=== PATIENT | female | born 2000 | race Caucasian/White ===

== ENCOUNTER 2022-08-25 12:31 | Inpatient (IN) | payer SELFPAY ==
[~2022-08-25] VITALS: Ht 172.7 cm; Wt 85.9 kg
[2022-08-25] VITALS (13 sets, daily range): BP systolic 100–139; BP diastolic 50–88; PULSE 64–111; TEMP 97.5–98.9
[2022-08-25] MEDS ORDERED: PRENATAL TABLET PO (12:49)
[2022-08-25] MEDS ORDERED: FERROUS SU325 MG/TAB PO (12:49)
--- NOTE | 2022-08-25 13:00 | NUR ---
1235- Pt arrives on unit with complaints of UCs every 3-8 mins. Pt into bathroom to change into gown. 1238- Pt into bed, EFM and TOCO on and tracing well. Rivera, RN at bedside assisting with admission. VSS. Pt states she and her were checking livestock outside of [place] when she started lavelle and came to closest hospital for care. Pt denies complications with , G3L2, 40+4, unsure of GBS results and verbalizes doing a glucose screening and it being normal. 1242- SVE by Rivera, RN , intact. Pt tolerating UCs well. 1253- Dr Moyer at bedside, obtains history. Admission orders received.
[2022-08-25 13:26] LABS: BASO % 0.2 % (0.0-2.0); EOS % 0.1 % (0.0-4.0); GRAN # 10.3 K/mm3 (1.4-6.5); GRAN % 80.4 % (42.2-75.2); LYMPH # 1.8 K/mm3 (1.2-3.4); LYMPH % 13.9 % (20.0-51.0); MEAN CELL VOLUME 65 fl (80.0-100.0); MEAN CORPUSCULAR HGB CONC 29 g/dl (33.0-37.0); MEAN PLATELET VOLUME 10.1 fl (7.4-10.4); MONO # 0.6 K/mm3 (0.1-0.6); MONO % 4.8 % (1.7-9.3); PLATELET COUNT 358 K/mm3 (130-400)
[2022-08-25 13:29] LABS: HEMATOCRIT 25.2 % (37.0-47.0); HEMOGLOBIN 7.3 g/dl (12.5-16.0); MEAN CORPUSCULAR HEMOGLOBIN 19 pg (27-31)
--- NOTE | 2022-08-25 13:38 | NUR ---
1338- [facility] and TOCO off. Pt up to void, provide urine sample. Requests to use BB. Discussed intermittent monitoring, questions answered.
[2022-08-25 13:43] LABS: ALBUMIN 2.8 gm/dL (3.5-5.0); BILIRUBIN,TOTAL 0.3 mg/dL (0.2-1.2); CALCIUM 8.9 mg/dL (8.4-10.2); CREATININE, serum 0.66 mg/dL (0.57-1.11); POTASSIUM 3.9 mmol/L (3.5-4.5); TOTAL PROTEIN 7.1 gm/dL (6.2-8.1)
[2022-08-25 14:00] LABS: HIV 1/2 Antibodies Non-Reactive; HIV-1p24 Antigen Non-Reactive
[2022-08-25 14:06] LABS: COLLECTION METHOD CLEAN CATCH
--- NOTE | 2022-08-25 14:26 | NUR ---
1426- EFM and TOCO on and tracing well. Pt on BB. Tolerating UCs well.
[2022-08-25 14:31] LABS: TRICYCLIC ANTIDEPRESS URINE NEGATIVE
[2022-08-25 14:35] LABS: PH 7.5 (5.0-8.5); URINE APPEARANCE Cloudy (CLEAR/HAZY); URINE COLOR Yellow (YELLOW)
[2022-08-25 14:36] LABS: URINE GLUCOSE Negative (NEGATIVE); URINE KETONE Negative (NEGATIVE); URINE NITRATE Positive (NEGATIVE); URINE PROTEIN(semi-quant) Negative (NEGATIVE); URINE UROBILINOGEN 0.2 E.U/dL (0.2-1.0)
[2022-08-25 14:37] LABS: URINE BLOOD TRACE-INTACT (NEGATIVE)
[2022-08-25 14:39] LABS: MUCOUS Present (NOT PRESENT); SQUAMOUS EPITHELIAL 0-2 /hpf (0-10); URINE BACTERIA Rare /hpf (NONE SEEN); URINE WBC 20-50 /hpf (0-2)
--- NOTE | 2022-08-25 15:14 | NUR ---
1514- [facility] and TOCO off. Pt ambulates in mckoy and room.
--- NOTE | 2022-08-25 16:30 | NUR ---
1603- Pt assisted to LL with RL on stirrup. Pt tolerating UCs well. 1619- Pt complains of of feeling small amount of pressure with UCs. SVE by this RN 8-. Pt repositioned to Skylar position.
--- NOTE | 2022-08-25 17:00 | NUR ---
1641- Pt assisted to knees, leaning over back of bed. Pt tolerating well. 1700- MENDEL Palm to bedside, takes over care of Pt at this time.
--- NOTE | 2022-08-25 17:45 | NUR ---
1650 THIS RN COMES INTO ROOM TO TAKE OVER PT CARE. 170 SVE BY THIS RN 1. PT REQUESTS TO BE CHECKED. PT STATES "FEELING PUSHY". PT UPDATED ON SVE. 1707 DR TRACY CALLED FOR DELIVERY. DR TRACY STATES "I AM WALKING ONTO UNIT 1710 SVE /+1. 1713 PT BEGINS PUSHING WITH CONTRACTIONS. 1717 SPONTANEOUS VAGINAL DELIVERY OF VIABLE MALE . BULB SUCTIONED AND STIMULATED. CORD CLAMPED BY DR TRACY AND CUT BY FOB. INFANT TO MOTHER'S CHEST. Ron GRAY RN TAKES OVER CARE OF INFANT. 1721 SPONTANEOUS DELIVERY OF PLACENTA. PITOCIN BOLUS STARTED PER PROTOCOL. PT STRAIGHT CATHED. 100CC NOTED. 1ST DEGREE PERINEAL LACERATION REPAIRED BY DR TRACY. PERICARE DONE. PT REPOSITIONED. FUNDAL MASSAGE DONE. FIRM MIDLINE. SMALL AMT OF BLEEDING NOTED. THIS RN GIVES PT WARM BLANKET, DISCUSSES PLAN OF CARE WITH PT, CALL LIGHT WITHIN REACH.
--- NOTE | 2022-08-25 18:20 | NUR ---
Report received from Maddy Baker RN. Pt delivered at 1717. Current QBL at 488. Dr. Moyer would like to be called if pt does not feel well, feels light headed, or bleeding. This nurse can have credit of 1500 for LR and Pitocin. Cord stat not done. Maddy Baker RN stated "Placenta was sent off to patho and cord gases were drawn." Sheila Bhakta RN stated "I will ask Dr. Kate about that." This is pt third baby. Initial Hgb at 7.3. Pt was adequately dosed for unknown GBS status. This nurse assumes care for pt.
--- NOTE | 2022-08-25 19:05 | NUR ---
Silvia Ramirez RN called out to this nurse to attend to pt bedside. Pt in bed, IV out stating "I felt something leaking and noticed that it came out." Pt care provided and cleaned up. IV site free of inflammation, redness, or infection. Bandaid applied.
--- NOTE | 2022-08-25 20:05 | NUR ---
Pt OOB, ambulating to utilize bathroom. Pericare performed, pt changed into friendly gown. Pt educated on vaginal bleeding and care. Pt ambulated, accompanied by this nurse pushing baby in crib, with pt spouse and belongings in tow to Room 208 at 2005. Pt oriented to Room 208, educated on whiteboard, and educated on packet. Questions, concerns, and needs encouraged. Pt verbalized understanding and agreement of POC and education with "no" questions, concerns, or needs.
--- NOTE | 2022-08-25 21:46 | NUR ---
This nurse at pt bedside for rounding. Pt passed a 23g clot, size of a golf ball. Pericare provided, ice pack weighed, 7g. Pt bleeding WNL, scant. Pt fundus firm and down 1 fingerbreadth. Pt afebrile and states "Oh I feel fine. I am not lightheaded. I passed clots with all my other kids." Questions, concerns, and needs encouraged. Pt denies questions, concerns, or needs.
--- NOTE | 2022-08-25 22:06 | NUR ---
This nurse at pt bedside during hourly rounding. Questions, concerns, needs encouraged. Pt denies questions, concerns, and needs.
[2022-08-25 22:11] LABS: HEPATITIS B SURFACE ANTIGEN Negative (Negative)
--- NOTE | 2022-08-25 23:39 | NUR ---
2240: This nurse at pt bedside. Pt notified of pt baby relocation to nursery for mec stat collection. Pt verbalized understanding and agreement of POC. 2300: This nurse at pt bedside with pt baby. Pt notified of pt baby return. VS obtained, POC discussed with pt. Questions, concerns, and needs encouraged. Pt denies questions, concerns, and needs.
--- NOTE | 2022-08-26 01:09 | NUR ---
0045: Pt called out for this nurse. This nurse at pt bedside. Pt stated "Baby boy has a poopy diaper." This nurse inform pt that pt baby will be relocated to nursery for mec stat collection. Pt verbalized understanding and agreement of POC. 0100: This nurse at pt bedside for hourly rounding and with pt baby. Pt notified of pt baby return.
[2022-08-26 03:00] VITALS: BP 136/86; PULSE 100; TEMP 97.9
--- NOTE | 2022-08-26 04:21 | NUR ---
0100: Pt asleep during this nurse hourly rounding. Rise and fall of chest with non-laborous breathing noted. 0330: This nurse at pt bedside for med administration and VS obtainment, pt roused. Pt requested for baby to be given a bottle and to be brought to nursery so that pt "can get some sleep because I am so tired."
[2022-08-26 07:00] VITALS: BP 123/70; PULSE 97; TEMP 97.9
--- NOTE | 2022-08-26 09:43 | NUR ---
Initial visit attempt; Testing in progress, Cylinder Valve Repairer left card offering congratulations and God's blessings for the of their son and information regarding the availability of [facility] for their family.
--- NOTE | 2022-08-26 10:00 | NUR ---
1000 DR. ZIEGLER AND THIS RN IN ROOM. DR. ZIEGLER ASKING IF PT KNOWS GBS STATUS OR HAS RECORDS. PT DOES NOT HAVE RECORDS, WHEN CALLING THE INDUSTRIAL PIPEFITTER JOURNEYMAN SHE WAS SEEING FOR PNC, THE PATIENT STATES "THE INDUSTRIAL PIPEFITTER JOURNEYMAN DIDN'T LIKE THAT WE CAME HERE TO DELIVER. I GUESS WE WENT TOO OCCITAN FOR THEM. IT IS AN [facility], THEY DONT HAVE A WEBSITE." PT THEN GAVE ME TA SIDHU, HER MIDWIFES INFORMATION. HER PHONE NUMBER IS [phone]. WHEN I ATTEMPTED TO CALL THIS NUMBER, I RECEIVED HER VOICEMAIL AND ASKED HER TO CALL ME BACK REGARDING A PATIENT. I HAVE NOT RECEIVED A CALL BACK OF 1600 ON 08/26.
--- NOTE | 2022-08-26 13:11 | NUR ---
THIS PROCUREMENT SERVICES MANAGER ASSUMES CARE OF PATIENT FROM SILVIO OLIVAS RN.
[2022-08-26 16:11] VITALS: BP 117/67; PULSE 71; TEMP 98.7
[2022-08-26 19:15] VITALS: BP 134/80; PULSE 77; TEMP 99.1
[2022-08-27 07:30] VITALS: BP 128/80; PULSE 94
--- NOTE | 2022-08-27 08:18 | NUR ---
0730 THIS RN TO ROOM FOR MORNING VS/ASSESSMENTS/MEDS. POC REVIEWED, BOARD UPDATED, PLANS TO D/C TODAY. QUESTIONS AND CONCERNS INVITED, NONE AT THIS TIME.
== END 2022-08-27 13:50 | disposition home or self-care (01) | DRG 807 ==
LOC: LDRO 12:31 → LDR 13:01 → OB 20:05
PROVIDERS: ADMIT Obstetrics & Gynecology
PROC: 10E0XZZ Delivery of Products of Conception, External Approach (ICD-10-PCS; principal; 2022-08-25)
PROC: 0HQ9XZZ Repair Perineum Skin, External Approach (ICD-10-PCS; 2022-08-25)
DX: O99.02 Anemia complicating childbirth (principal); Z37.0 Single live birth; D64.9 Anemia, unspecified; O77.0 Labor and delivery complicated by meconium in amniotic fluid; O70.0 First degree perineal laceration during delivery; O48.0 Post-term pregnancy; Z3A.40 40 weeks gestation of pregnancy
CPT/HCPCS: J0690; J2590; J7120